=== PATIENT | male | born 1985 | race Two or more races ===

== ENCOUNTER 2023-05-04 17:48 | Inpatient (IN) | payer OTHER ==
[~2023-05-04] VITALS: Ht 172.7 cm; Wt 104.8 kg
--- NOTE | 2023-05-04 18:00 | NUR ---
BLOOD GLUCOSE 465, DR MAN AWARE.
--- NOTE | 2023-05-04 18:55 | NUR ---
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 VITALS ARE WITHIN NORMAL LIMITS, AWAITING MD WEBB.
--- NOTE | 2023-05-04 18:59 | NUR ---
IV ESTABLISHED R AC 18G. LABS DRAWN AND COLLECTD AT BEDSIDE. SALINE LOCK APPLIED.
[2023-05-04] MEDS ORDERED: IV NS 0.9% 1,000 ML BAG IV ONE ×2 (19:00→20:30)
[2023-05-04 19:14] LABS: BASOPHILS # (AUTO) 0.2 K/uL (0.0-0.2); BASOPHILS % (AUTO) 3.3 % (0.0-2.0); EOSINOPHILS % (AUTO) 1.8 % (0.0-6.0); HEMATOCRIT 43 % (39-51); HEMOGLOBIN 14.3 g/dL (13.5-17.5); LYMPHOCYTES # (AUTO) 0.9 K/uL (0.8-4.8); LYMPHOCYTES % (AUTO) 17.6 % (20.0-44.0); MEAN CORPUSCULAR HGB CONC 33 g/dl (31.0-36.0); MEAN CORPUSCULAR VOLUME 93 fL (80-96); MONOCYTES # (AUTO) 0.8 K/uL (0.1-1.30); MONOCYTES % (AUTO) 14.2 % (2.0-12.0); NEUTROPHILS # (AUTO) 3.4 K/uL (1.8-8.9); NEUTROPHILS % (AUTO) 63.1 % (43.0-81.0); PLATELET COUNT (AUTO) 201 K/uL (150-450); RED BLOOD CELL COUNT(AUTO) 4.59 MIL/uL (4.5-6.0); WHITE BLOOD COUNT (AUTO) 5.3 K/uL (4.3-11.0)
--- NOTE | 2023-05-04 19:21 | NUR ---
EMT AT PT'S BEDSIDE FOR EKG
--- NOTE | 2023-05-04 19:21 | NUR ---
RT AT PT'S BEDSIDE
--- NOTE | 2023-05-04 19:24 | NUR ---
VBG DONE AND GIVEN TO RT CRISTINE.
[2023-05-04 19:28] LABS: SITE, VBG Other; VBG COHb 0.3 %; VBG MetHb 0.5 %; VBG OXYGEN SATURATION 89.7 %; VENT MODE, VBG room air
--- NOTE | 2023-05-04 19:28 | NUR ---
RECEIVED REPORT FROM LAVINIA MUNOZ. PT CAME WITH HIGH GLUCOSE LEVEL. RECEIVED WITH IV SRINIVASAN G18 ON RIGHT AC., WITH ONGOING IVF OF NS 1L. PATIENT IS AOX4, ABLE TO MAKE NEEDS KNOWN. RESTING IN BED. VITALS CHECKED.
[2023-05-04 19:36] LABS: CALCIUM, SERUM 8.8 mg/dL (8.5-10.1); CARBON DIOXIDE 13 mmol/L (21-32); CHLORIDE 97 mmol/L (98-107); CREATININE 1.1 mg/dL (0.6-1.3); POTASSIUM 3.4 mmol/L (3.5-5.1); SODIUM SERUM 132 mmol/L (136-145); UREA NITROGEN, BLOOD 10 mg/dL (7-18)
--- NOTE | 2023-05-04 19:39 | NUR ---
RECEIVED CRITICAL RESULT FROM JAYME OF LAB. PT GLUCOSE LEVEL IS 496. MADE AWARE
[2023-05-04 19:42] LABS: ALANINE AMINOTRANSFERASE 37 U/L (12-78); ALBUMIN 3.3 g/dL (3.4-5.0); ALKALINE PHOSPHATASE 216 U/L (46-116); ASPARTATE AMINOTRANSFERASE 16 U/L (15-37); BILIRUBIN,DIRECT 0.2 mg/dL (0.0-0.2); BILIRUBIN,TOTAL 0.7 mg/dL (0.2-1.0); LIPASE 240 U/L (73-393); TOTAL PROTEIN, SERUM 6.9 g/dL (6.4-8.2)
[2023-05-04 19:44] LABS: GLUCOSE 496 mg/dL (74-106)
--- NOTE | 2023-05-04 19:46 | NUR ---
XRAY DONE AT BEDSIDE
[2023-05-04] MEDS ORDERED: INSULIN REGULAR, HUMAN 100 UNIT/ML 10 ML VIAL ONE (20:14)
--- NOTE | 2023-05-04 20:25 | NUR ---
INSULIN DRIP ( NS 100ML+R INSULIN 100u) STARTED AT 6U/HR PER DR MAN.
[2023-05-04] MEDS ORDERED: INSULIN REGULAR, HUMAN 100 UNITS in IV NS 0.9% 100 ML IV PRN ×2 (20:30)
--- NOTE | 2023-05-04 20:38 | NUR ---
IV SRINIVASAN G18 INSERTED ON LEFT AC.
--- NOTE | 2023-05-04 21:09 | NUR ---
REPORT GIVEN TO LAVINIA RICHMOND.
--- NOTE | 2023-05-04 21:11 | NUR ---
RN NOTE RECEIVED HAND OFF REPORT FROM ED LAVINIA HUMPHREY
--- NOTE | 2023-05-04 21:29 | NUR ---
URINE SPECIMEN SENT TO LAB
[2023-05-04] MEDS ORDERED: Z GUARD REMEDY 4 OZ OINT TP PRN (21:30)
[2023-05-04] MEDS ORDERED: ACETAMINOPHEN 325 MG TABLET PO PRN (21:30)
[2023-05-04] MEDS ORDERED: ONDANSETRON HCL/PF 4 MG/2 ML VIAL IVP PRN (21:30)
[2023-05-04] MEDS ORDERED: INS (REG) DRIP 100 U/100 ML NS IV PRN ×2 (21:30)
[2023-05-04] MEDS ORDERED: MAG HYDROX/AL HYDROX/SIMETH 30 ML UDC PO PRN (21:30)
[2023-05-04] MEDS ORDERED: MAGNESIUM HYDROXIDE 30 ML UDC PO PRN (21:30)
--- NOTE | 2023-05-04 21:39 | NUR ---
TRANSFERRED TO ICU VIA ACLS PROTOCOL
--- NOTE | 2023-05-04 21:45 | NUR ---
ADMISSION NOTES ADMITTED A 37-YEAR-OLD MALE DX DKA, TRANSPORTED VIA GURNEY BY 2 ED PERSONNEL, NICOLASO X4, ON ROOM AIR. REAL ESTATE OFFICE SUPERVISOR SHOWING SINUS RHYTHM. IV ACCESS ON RAC #18G S/L, INTACT AND PATENT. LAC #18G INFUSING NS AT 150 ML/HR AND INSULIN DRIP AT 6 UNITS/HR PER ER DR. VITAL SIGNS FOLLOWS: TEMP 98F, HR 84, RR 22, BP 108/78. SKIN ASSESSMENT DONE, SCABS ON BILATERAL KNEES NOTED, PHOTOS TAKEN AND PLACED IN THE CHART. BELONGING LIST VERIFIED AND PLACED IN CHART. SAFETY MEASURES IN PLACE: BED LOCKED AND IN LOWEST POSITION, BED ALARM ON, SIDE RAILS UP X2, CALL LIGHT WITHIN REACH.
[2023-05-04] MEDS: IV NS 0.9% 1,000 ML IV PRN (21:50)
[2023-05-04 22:00] VITALS: BP 116/78; O2SAT 99
[2023-05-04 22:07] LABS: BILIRUBIN,URINE 1+ (NEGATIVE); COLOR,URINE YELLOW (YELLOW); LEUKOCYTE ESTERASE ,URINE NEGATIVE (NEGATIVE); NITRITE, URINE NEGATIVE (NEGATIVE); PROTEIN,URINE TRACE mg/dl (NEGATIVE); UGLUCOSE 3+ mg/dL (NEGATIVE); UROBILINOGEN,URINE 0.2 EU/dL (0.2)
[2023-05-04] MEDS: POTASSIUM CL. PREMIX PERIPHER. 50 ML IV SCH ×2 (22:15→23:17)
[2023-05-04 22:19] LABS: BACTERIA,URINE None seen /HPF (None Seen); MUCUS,URINE Few /LPF (None Seen); RBC,URINE 0-2 /HPF (0-2); SQUAMOUS EPITHELIAL CELL,UR None Seen /HPF (None Seen); WBC,URINE NONE SEEN /HPF (0-3)
[2023-05-04 23:00] VITALS: BP 96/60; O2SAT 97
[2023-05-04] MEDS: BLOOD SUGAR DIAGNOSTIC 1 EACH STRIP IN SCH (23:24)
[2023-05-04 23:29] LABS: CALCIUM, SERUM 8.1 mg/dL (8.5-10.1); CREATININE 0.8 mg/dL (0.6-1.3)
[2023-05-04 23:30] LABS: POTASSIUM 2.8 mmol/L (3.5-5.1)
--- NOTE | 2023-05-04 23:30 | NUR ---
RN NOTE RECEIVED LAB REPORT K 2.8, CHARGE NURSE AWARE.
[2023-05-05] VITALS (23 sets, daily range): BP systolic 89–107; BP diastolic 51–76; TEMP 98.1–98.9; O2SAT 98–100
[2023-05-05] MEDS: BLOOD SUGAR DIAGNOSTIC 1 EACH STRIP IN SCH ×23 (00:07→22:12)
[2023-05-05] MEDS: IV NS 0.9% 1,000 ML IV PRN ×4 (04:53→23:11)
[2023-05-05 05:03] LABS: BASOPHILS % (AUTO) 0.7 % (0.0-2.0); EOSINOPHILS % (AUTO) 2.4 % (0.0-6.0); HEMATOCRIT 38 % (39-51); HEMOGLOBIN 12.8 g/dL (13.5-17.5); LYMPHOCYTES # (AUTO) 1.1 K/uL (0.8-4.8); LYMPHOCYTES % (AUTO) 30.4 % (20.0-44.0); MEAN CORPUSCULAR HGB CONC 34 g/dl (31.0-36.0); MEAN CORPUSCULAR VOLUME 94 fL (80-96); MONOCYTES # (AUTO) 0.6 K/uL (0.1-1.30); MONOCYTES % (AUTO) 16.3 % (2.0-12.0); NEUTROPHILS # (AUTO) 1.9 K/uL (1.8-8.9); NEUTROPHILS % (AUTO) 50.2 % (43.0-81.0); PLATELET COUNT (AUTO) 138 K/uL (150-450); RED BLOOD CELL COUNT(AUTO) 4.03 MIL/uL (4.5-6.0); WHITE BLOOD COUNT (AUTO) 3.8 K/uL (4.3-11.0)
[2023-05-05 05:32] LABS: EOSINOPHILS % (MANUAL) 4 % (0-4); LYMPHOCYTES % (MANUAL) 30 % (16-48); MONOCYTES % (MANUAL) 12 % (0-11.0); NEUTROPHILS % (MANUAL) 54 (42-76)
[2023-05-05 05:36] LABS: CALCIUM, SERUM 8.1 mg/dL (8.5-10.1); CREATININE 0.8 mg/dL (0.6-1.3); MAGNESIUM 2.1 mg/dL (1.8-2.4); PHOSPHORUS 2.5 mg/dL (2.5-4.9)
[2023-05-05 06:11] LABS: POTASSIUM 2.5 mmol/L (3.5-5.1)
[2023-05-05 06:26] LABS: THYROID STIMULATING HORMONE 1.798 uIU/mL (0.358-3.74)
[2023-05-05] MEDS ORDERED: POTASSIUM CHLORIDE 20 MEQ TAB.PRT.SR PO ONE ×2 (06:35→12:00)
--- NOTE | 2023-05-05 06:42 | NUR ---
RN NOTE CRITICAL LAB VALUE POTASSIUM 2.5, NOTIFIED CELIA MERAZ, RECEIVED MED ORDERS.
--- NOTE | 2023-05-05 07:39 | NUR ---
RN CLOSING NOTES PATIENT IN BED, AAO X4, ON ROOM AIR, NO SOB/DISTRESS NOTED. PHARMACIST PER DIEM SHOWING SINUS RHYTHM. IV ACCESS ON RAC #18G S/L, INTACT AND PATENT. LAC #18G INFUSING NS AT 150 ML/HR AND INSULIN DRIP AT 0.5 UNITS/HR. ALL DUE MEDS WERE GIVEN AND NEEDS ATTENDED. SAFETY MEASURES IN PLACE: BED LOCKED AND IN LOWEST POSITION, BED ALARM ON, SIDE RAILS UP X2, CALL LIGHT WITHIN REACH. ENDORSED TO AM NURSE FOR TING.
[2023-05-05] MEDS: POTASSIUM CL. PREMIX PERIPHER. 50 ML IV SCH ×10 (07:51→22:38)
--- NOTE | 2023-05-05 08:02 | NUR ---
RN OPENING NOTES PATIENT RECEIVED IN BED. AAO X4, ON ROOM AIR, NO SOB/DISTRESS NOTED. SOLAR SALES ASSOCIATE SHOWING SINUS RHYTHM. IV ACCESS ON RAC #18G S/L, INTACT AND PATENT. LAC #18G INFUSING NS AT 150 ML/HR AND INSULIN DRIP AT 0.5 UNITS/HR. SAFETY MEASURES IN PLACE: BED LOCKED AND IN LOWEST POSITION, BED ALARM ON, SIDE RAILS UP X2, CALL LIGHT WITHIN REACH.
[2023-05-05] MEDS: PANTOPRAZOLE 40 MG VIAL IV SCH (09:12)
[2023-05-05 09:37] LABS: CALCIUM, SERUM 8.2 mg/dL (8.5-10.1); CREATININE 0.9 mg/dL (0.6-1.3); POTASSIUM 3.4 mmol/L (3.5-5.1)
--- NOTE | 2023-05-05 11:41 | NUR ---
PHARMACY CANCELLED 1/4 BAGS FOR INITIAL ORDER OF IV POTASSIUM CHLORIDE 10 MEQ THEY THOUGHT THE ORDER WAS FOR 3 BAGS ONLY. SPOKE TO PHARMACY AND REQUESTED LAST BAG. PHARMACY PLACED ANOTHER ORDER FOR 1 BAG SCHEDULED FOR ADMINISTRATION AT NOON.
[2023-05-05] MEDS ORDERED: POTASSIUM CL. PREMIX PERIPHER. 50 ML IV SCH (12:00)
[2023-05-05 13:33] LABS: CALCIUM, SERUM 8.2 mg/dL (8.5-10.1); CREATININE 0.9 mg/dL (0.6-1.3); POTASSIUM 3.2 mmol/L (3.5-5.1)
[2023-05-05] MEDS ORDERED: METF-440 PO (15:22)
[2023-05-05 16:05] LABS: CALCIUM, SERUM 8.4 mg/dL (8.5-10.1); CREATININE 0.9 mg/dL (0.6-1.3); POTASSIUM 2.9 mmol/L (3.5-5.1)
[2023-05-05] MEDS ORDERED: POTASSIUM CHLORIDE 10 MEQ/50 ML PREMIXED IVPB FOR PERIPHERAL LINE IV PRN (19:00)
--- NOTE | 2023-05-05 19:05 | NUR ---
RN OPENING NOTES RECEIVED PATIENT ON BED, AWAKE, ALERT AND VERBALLY RESPONSIVE ON ROOM AIR, SATING AT 94%. RESPIRATORY EVEN AND UNLABORED, NO SOB NOTED. AFEBRILE. NO S/S OF DISTRESS NOTED. NOTED WITH RAC # 18 AND LAC # 18 PERIPHERAL LINE, PATENT INTACT, FLUSHED WITH NS, NO S/S OF INFILTRATION NOTED. CURRENT RUNNING WITH INSULIN DRIP @ 4 UNITS/HR AND NS @ 150 ML/HR. ALL SAFETY PRECAUTION PROVIDED. BED IN LOWEST POSITION LOCKED. CALL LIGHT WITH IN REACH.
[2023-05-05 20:28] LABS: CALCIUM, SERUM 8.3 mg/dL (8.5-10.1); CREATININE 0.9 mg/dL (0.6-1.3); POTASSIUM 3.3 mmol/L (3.5-5.1)
[2023-05-05] MEDS ORDERED: DEXTROSE 50%-WATER 50 ML DISP.SYRIN IV PRN (22:00)
[2023-05-05] MEDS ORDERED: INSULIN GLARGINE, 100 UNIT/ML CARTRIDGE SQ SCH (22:00)
[2023-05-05] MEDS ORDERED: INSULIN GLARGINE, 100 UNIT/ML CARTRIDGE SQ ONE (22:07)
[2023-05-05] MEDS: INSULIN REGULAR, HUMAN 100 UNIT/ML 3 ML VIAL SQ PRN (22:29)
[2023-05-06 00:30] VITALS: BP 112/69; TEMP 97.8; O2SAT 99
--- NOTE | 2023-05-06 00:30 | NUR ---
RN NOTES REPORT GIVEN TO LAVINIA JUAREZ.
--- NOTE | 2023-05-06 00:40 | NUR ---
RN NOTES TRANSFERRED PATIENT TO ROOM 314-2 IN STABLE CONDITION.
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
[2023-05-06] MEDS: IV NS 0.9% 1,000 ML IV PRN (05:44)
[2023-05-06 05:51] LABS: BASOPHILS % (AUTO) 0.5 % (0.0-2.0); EOSINOPHILS % (AUTO) 1.2 % (0.0-6.0); HEMATOCRIT 41 % (39-51); HEMOGLOBIN 14.1 g/dL (13.5-17.5); LYMPHOCYTES # (AUTO) 0.8 K/uL (0.8-4.8); LYMPHOCYTES % (AUTO) 21.3 % (20.0-44.0); MEAN CORPUSCULAR HGB CONC 34 g/dl (31.0-36.0); MEAN CORPUSCULAR VOLUME 93 fL (80-96); MONOCYTES # (AUTO) 0.4 K/uL (0.1-1.30); MONOCYTES % (AUTO) 11.7 % (2.0-12.0); NEUTROPHILS # (AUTO) 2.4 K/uL (1.8-8.9); NEUTROPHILS % (AUTO) 65.3 % (43.0-81.0); PLATELET COUNT (AUTO) 139 K/uL (150-450); RED BLOOD CELL COUNT(AUTO) 4.42 MIL/uL (4.5-6.0); WHITE BLOOD COUNT (AUTO) 3.7 K/uL (4.3-11.0)
--- NOTE | 2023-05-06 06:08 | NUR ---
INFORMATION SENT:FACESHEET,24 HRS REPORT,DC PLANNING,PROGRESS NOTES-05/05 INSURANCE NAME:KATHYNelly/AUTH# [id number] FAX NO:[phone] / [phone] [facility] NAME:[facility] FAX NO:[phone] NO OF PAGES:19 FAX SENT BY:SULAIMAN
[2023-05-06 06:21] LABS: CALCIUM, SERUM 8.5 mg/dL (8.5-10.1); CREATININE 0.7 mg/dL (0.6-1.3); POTASSIUM 3.1 mmol/L (3.5-5.1)
--- NOTE | 2023-05-06 06:30 | NUR ---
MS RN CLOSING NOTE PATIENT IN BED, ASLEEP BUT EASY TO AROUSE AND RESPONSIVE. ABLE TO MAKE NEEDS KNOWN. AFEBRILE AND NOT IN ANY FORM OF ACUTE DISTRESS. BREATHING EVEN AND NON LABORED. NO C/O PAIN OR DISCOMFORT THROUGHOUT THE SHIFT. WITH IV ACCESS ON RIGHT AND LEFT AC 18G RUNNING WITH NS AT 75ML/HR. MONITORED FOR ANY S/SX. OF HYPO/HYPERGLYCEMIA. MEDICATED ORDERED. SAFETY MEASURES IN PLACE. KEPT BED IN LOCKED AND IN LOW POSITION. SIDE RAILS UP X2. ADVISED TO USE THE CALL LIGHT WHEN IN NEED OF ASSISTANCE. ALL NURSING NEEDS ATTENDED. ENDORSED TO INCOMING SHIFT FOR CONTINUITY OF CARE.
[2023-05-06] MEDS: BLOOD SUGAR DIAGNOSTIC 1 EACH STRIP IN SCH (06:35)
[2023-05-06] MEDS: INSULIN REGULAR, HUMAN 100 UNIT/ML 3 ML VIAL SQ PRN (06:37)
[2023-05-06 07:30] VITALS: BP 93/62; TEMP 98.1; O2SAT 97
[2023-05-06] MEDS ORDERED: POTASSIUM CHLORIDE 20 MEQ TAB.PRT.SR PO ONE ×2 (07:30→11:00)
--- NOTE | 2023-05-06 07:40 | NUR ---
RN OPENING NOTE RECEIVED PATIENT IN BED, ASLEEP BUT EASY TO AROUSE AND RESPONSIVE, ABLE TO MAKE NEEDS KNOWN. PT IS ON ROOM AIR BREATHING EVEN AND UNLABORED, NO SOB OR DISTRESS NOTED. NO COMPLAINS OF PAIN OR DISCOMFORT AT THIS TIME. WITH IV ACCESS ON RIGHT AC #18G AND LEFT AC #18G RUNNING WITH NS AT 75ML/HR. SAFETY MEASURES IN PLACE: BED IN LOWEST LOCKED POSITION, SIDE RAILS UP X2, CALL LIGHT WITHIN REACH. WILL CONTINUE TO MONITOR ACCORDINGLY.
[2023-05-06] MEDS: PANTOPRAZOLE 40 MG VIAL IV SCH (08:20)
--- NOTE | 2023-05-06 16:11 | NUR ---
STEP DOWN SPECIALIST NOTE RECEIVED ORDER FOR DISCHARGE. PATIENT IS A/O X4, ABLE TO MAKE NEEDS KNOWN, STABLE ON ROOM AIR, NO SOB OR DISTRESS NOTED. DISCHARGE INSTRUCTION GIVEN, PT VERBALIZED UNDERSTANDING. ALL BELONGINGS ACCOUNTED FOR, BELONGING SHEET SIGNED. PT DENIES ANY PAIN OR DISCOMFORT AT THIS TIME. IV ACCESS REMOVED, CATHETER TIP INTACT, PRESSURE DRESSING APPLIED. EXIT CARE FOLDER GIVEN TO PT. PATIENT LEFT IN STABLE CONDITION WITH FAMILY VIA PRIVATE CAR.
[2023-05-06] MEDS ORDERED: METFORMIN 500 MG TABLET PO SCH (17:00)
[2023-05-07] MEDS ORDERED: PANTOPRAZOLE 40 MG TABLET.DR PO SCH (09:00)
== END 2023-05-06 12:15 | disposition home or self-care (01) | DRG 420 ==
LOC: ER 17:53 → ICU 20:41 → MED 05-06 01:05
PROVIDERS: ADMIT Nurse Practitioner Acute Care; ATTEND Internal Medicine
DX: E11.10 Type 2 diabetes mellitus with ketoacidosis without coma (principal); E87.1 Hypo-osmolality and hyponatremia; E86.1 Hypovolemia; E66.9 Obesity, unspecified; E87.6 Hypokalemia; Z68.35 Body mass index [BMI] 35.0-35.9, adult; Z79.4 Long term (current) use of insulin
CPT/HCPCS: 36415; 71045-TC; 80048-TC; 80061-TC; 80076-TC; 81001; 82010-TC; 82803-TC; 82962-TC; 83690-TC; 83735-TC; 84100-TC; 84443-TC; 84484-TC; 85025-TC; 87081-TC; 87086-TC; A4223; C9113; G0378; J1815; J3480; J7030; J7050

== ENCOUNTER 2023-07-07 09:32 | Inpatient (IN) | payer OTHER ==
[2023-07-07] VITALS (16 sets, daily range): BP systolic 94–117; BP diastolic 56–82; TEMP 97.7; O2SAT 100
[~2023-07-07] VITALS: Ht 172.7 cm; Wt 86.2 kg
[~2023-07-07 09:32] MED LIST: METF-440 PO
[2023-07-07] MEDS ORDERED: IV NS 0.9% 1,000 ML BAG IV ONE ×2 (10:00→12:30)
[2023-07-07 10:21] LABS: BASOPHILS % (AUTO) 0.4 % (0.0-2.0); EOSINOPHILS % (AUTO) 0.1 % (0.0-6.0); HEMATOCRIT 50 % (39-51); HEMOGLOBIN 16.9 g/dL (13.5-17.5); LYMPHOCYTES # (AUTO) 0.7 K/uL (0.8-4.8); LYMPHOCYTES % (AUTO) 9.3 % (20.0-44.0); MEAN CORPUSCULAR HEMOGLOBIN 34 PG (26.0-33.0); MEAN CORPUSCULAR HGB CONC 34 g/dl (31.0-36.0); MEAN CORPUSCULAR VOLUME 100 fL (80-96); MONOCYTES # (AUTO) 0.8 K/uL (0.1-1.30); MONOCYTES % (AUTO) 11.2 % (2.0-12.0); NEUTROPHILS # (AUTO) 5.6 K/uL (1.8-8.9); PLATELET COUNT (AUTO) 233 K/uL (150-450); RED BLOOD CELL COUNT(AUTO) 5.06 MIL/uL (4.5-6.0); RED CELL DISTRIBUTION WIDTH 16.9 % (11.5-15.0)
[2023-07-07 10:30] LABS: INR 0.97 (0.91-1.10); PARTIAL THROMBOPLASTIN TIME 28.4 SEC (24.3-34.3); PROTHROMBIN TIME 10.3 SECS (9.2-11.1)
[2023-07-07 10:46] LABS: ALANINE AMINOTRANSFERASE 27 U/L (12-78); ALBUMIN 3.5 g/dL (3.4-5.0); ALKALINE PHOSPHATASE 255 U/L (46-116); ASPARTATE AMINOTRANSFERASE 11 U/L (15-37); BILIRUBIN,DIRECT 0.3 mg/dL (0.0-0.2); BILIRUBIN,TOTAL 0.9 mg/dL (0.2-1.0); CALCIUM, SERUM 10.5 mg/dL (8.5-10.1); CARBON DIOXIDE 12 mmol/L (21-32); CHLORIDE 93 mmol/L (98-107); CREATININE 1.4 mg/dL (0.6-1.3); LIPASE 311 U/L (73-393); POTASSIUM 2.9 mmol/L (3.5-5.1); SODIUM SERUM 131 mmol/L (136-145); TOTAL PROTEIN, SERUM 7.4 g/dL (6.4-8.2); UREA NITROGEN, BLOOD 16 mg/dL (7-18)
[2023-07-07 10:48] LABS: GLUCOSE 567 mg/dL (74-106)
[2023-07-07 10:48] LABS: APPEARANCE,URINE SLIGHTLY CLOUDY (CLEAR); BILIRUBIN,URINE NEGATIVE (NEGATIVE); BLOOD, URINE 1+ Ery/uL (NEGATIVE); COLOR,URINE YELLOW (YELLOW); KETONES,URINE 3+ mg/dL (NEGATIVE); LEUKOCYTE ESTERASE ,URINE NEGATIVE (NEGATIVE); NITRITE, URINE NEGATIVE (NEGATIVE); PROTEIN,URINE NEGATIVE (NEGATIVE); UGLUCOSE 3+ mg/dL (NEGATIVE); UROBILINOGEN,URINE 0.2 EU/dL (0.2)
[2023-07-07 11:11] LABS: ADD URINE CULTURE NO; BACTERIA,URINE Rare /HPF (None Seen); SQUAMOUS EPITHELIAL CELL,UR Rare /HPF (None Seen); WBC,URINE 0-2 /HPF (0-3)
[2023-07-07] MEDS ORDERED: METF-442 PO (12:07)
[2023-07-07 12:56] LABS: CALCIUM, SERUM 9.3 mg/dL (8.5-10.1); CREATININE 1.1 mg/dL (0.6-1.3); MAGNESIUM 2.2 mg/dL (1.8-2.4)
[2023-07-07 12:59] LABS: POTASSIUM 2.6 mmol/L (3.5-5.1)
[2023-07-07] MEDS: IV PREMIX NS + 40 MEQ KCL 1 L IV PRN (13:00)
[2023-07-07] MEDS ORDERED: POTASSIUM CHLORIDE 20 MEQ TAB.PRT.SR PO ONE ×2 (13:30→13:57)
[2023-07-07] MEDS ORDERED: IV PREMIX NS +20MEQ KCL 1 L IV PRN (14:00)
[2023-07-07 14:41] LABS: CALCIUM, SERUM 8.7 mg/dL (8.5-10.1); CREATININE 1.2 mg/dL (0.6-1.3); MAGNESIUM 2.1 mg/dL (1.8-2.4); PHOSPHORUS 3.5 mg/dL (2.5-4.9)
[2023-07-07 14:49] LABS: POTASSIUM 2.8 mmol/L (3.5-5.1)
[2023-07-07] MEDS ORDERED: IV NS 0.9% 1,000 ML IV PRN (15:00)
[2023-07-07] MEDS ORDERED: INSULIN REGULAR, HUMAN 100 UNIT in IV NS 0.9% 99 ML IV PRN ×4 (15:00→17:00)
[2023-07-07] MEDS ORDERED: ONDANSETRON HCL/PF 4 MG/2 ML VIAL IVP PRN (15:00)
[2023-07-07 16:49] LABS: POTASSIUM 3.2 mmol/L (3.5-5.1); SODIUM SERUM 139 mmol/L (136-145)
[2023-07-07 16:50] LABS: CALCIUM, SERUM 8.4 mg/dL (8.5-10.1); CHLORIDE 106 mmol/L (98-107); GLUCOSE 342 mg/dL (74-106); PHOSPHORUS 3.4 mg/dL (2.5-4.9); UREA NITROGEN, BLOOD 12 mg/dL (7-18)
[2023-07-07 16:51] LABS: MAGNESIUM 2.1 mg/dL (1.8-2.4)
[2023-07-07] MEDS: BLOOD SUGAR DIAGNOSTIC 1 EACH STRIP IN SCH ×8 (17:36→23:51)
[2023-07-07] MEDS: Potassium Chloride 40 MEQ in IV NS 0.9% 1,000 ML IV SCH (17:58)
[2023-07-07 19:02] LABS: CARBON DIOXIDE 12 mmol/L (21-32)
[2023-07-07 20:53] LABS: CALCIUM, SERUM 8.6 mg/dL (8.5-10.1)
[2023-07-08] VITALS (13 sets, daily range): BP systolic 90–109; BP diastolic 50–77; TEMP 97.5–98.5; O2SAT 97–100
[2023-07-08] LABS: CALCIUM, SERUM 8.7 mg/dL (8.5-10.1)
[2023-07-08 00:10] LABS: POTASSIUM 2.8 mmol/L (3.5-5.1)
[2023-07-08] MEDS ORDERED: POTASSIUM CHLORIDE 20 MEQ TAB.PRT.SR PO ONE (00:30)
[2023-07-08] MEDS: POTASSIUM CL. PREMIX PERIPHER. 50 ML IV SCH ×4 (00:37→03:48)
[2023-07-08] MEDS: BLOOD SUGAR DIAGNOSTIC 1 EACH STRIP IN SCH ×5 (01:02→12:15)
[2023-07-08] MEDS: Potassium Chloride 40 MEQ in IV NS 0.9% 1,000 ML IV SCH ×2 (01:59→10:05)
[2023-07-08] MEDS ORDERED: DEXTROSE 50%-WATER 50 ML DISP.SYRIN IV PRN (03:30)
[2023-07-08 04:19] LABS: BASOPHILS % (AUTO) 0.6 % (0.0-2.0); EOSINOPHILS # (AUTO) 0.1 K/uL (0.0-0.7); EOSINOPHILS % (AUTO) 1.1 % (0.0-6.0); HEMATOCRIT 40 % (39-51); HEMOGLOBIN 13.7 g/dL (13.5-17.5); LYMPHOCYTES # (AUTO) 0.9 K/uL (0.8-4.8); LYMPHOCYTES % (AUTO) 16.9 % (20.0-44.0); MEAN CORPUSCULAR HEMOGLOBIN 33 PG (26.0-33.0); MEAN CORPUSCULAR HGB CONC 34 g/dl (31.0-36.0); MEAN CORPUSCULAR VOLUME 98 fL (80-96); MONOCYTES # (AUTO) 0.7 K/uL (0.1-1.30); MONOCYTES % (AUTO) 13.4 % (2.0-12.0); NEUTROPHILS # (AUTO) 3.5 K/uL (1.8-8.9); PLATELET COUNT (AUTO) 192 K/uL (150-450); RED BLOOD CELL COUNT(AUTO) 4.13 MIL/uL (4.5-6.0); RED CELL DISTRIBUTION WIDTH 17.1 % (11.5-15.0); WHITE BLOOD COUNT (AUTO) 5.1 K/uL (4.3-11.0)
[2023-07-08 04:29] LABS: CREATININE 0.8 mg/dL (0.6-1.3); PHOSPHORUS 2.2 mg/dL (2.5-4.9); POTASSIUM 3.9 mmol/L (3.5-5.1)
[2023-07-08] MEDS: INSULIN REGULAR, HUMAN 100 UNIT/ML 3 ML VIAL SQ PRN ×2 (07:59→12:17)
[2023-07-08] MEDS ORDERED: PANTOPRAZOLE 40 MG VIAL IV SCH (09:00)
[2023-07-08] MEDS ORDERED: K PHOS NEUTRAL 250 MG TABLET PO ONE (16:00)
== END 2023-07-08 15:45 | disposition home or self-care (01) | DRG 420 ==
LOC: ER 09:32 → TELE1 15:05 → ICU 16:04 → MED 07-08 11:45
DX: E11.10 Type 2 diabetes mellitus with ketoacidosis without coma (principal); N17.9 Acute kidney failure, unspecified; Z79.84 Long term (current) use of oral hypoglycemic drugs; Z87.891 Personal history of nicotine dependence; E87.6 Hypokalemia
CPT/HCPCS: 36415; 71045-TC; 80048-TC; 80076-TC; 81001; 82962-TC; 83690-TC; 83735-TC; 84100-TC; 84484-TC; 85025-TC; 85730-TC; 87086-TC; A4223; C9113; G0378; J1815; J3480; J3490; J7030

== ENCOUNTER 2023-08-01 21:03 | Inpatient (IN) | payer OTHER ==
[~2023-08-01] VITALS: Ht 175.3 cm; Wt 87.1 kg
[~2023-08-01 21:03] MED LIST changes: -METF-440 PO; +METF-442 PO
[2023-08-01] MEDS ORDERED: IV NS 0.9% 1,000 ML IV PRN ×4 (21:30→23:00)
[2023-08-01 21:42] LABS: BASOPHILS # (AUTO) 0.1 K/uL (0.0-0.2); BASOPHILS % (AUTO) 0.6 % (0.0-2.0); EOSINOPHILS % (AUTO) 0.1 % (0.0-6.0); HEMATOCRIT 49 % (39-51); HEMOGLOBIN 16.3 g/dL (13.5-17.5); LYMPHOCYTES # (AUTO) 0.6 K/uL (0.8-4.8); LYMPHOCYTES % (AUTO) 5.2 % (20.0-44.0); MEAN CORPUSCULAR HEMOGLOBIN 34 PG (26.0-33.0); MEAN CORPUSCULAR HGB CONC 33 g/dl (31.0-36.0); MEAN CORPUSCULAR VOLUME 101 fL (80-96); MONOCYTES # (AUTO) 1.6 K/uL (0.1-1.30); MONOCYTES % (AUTO) 14.4 % (2.0-12.0); NEUTROPHILS # (AUTO) 9.2 K/uL (1.8-8.9); NEUTROPHILS % (AUTO) 79.7 % (43.0-81.0); PLATELET COUNT (AUTO) 334 K/uL (150-450); RED BLOOD CELL COUNT(AUTO) 4.85 MIL/uL (4.5-6.0); RED CELL DISTRIBUTION WIDTH 15.6 % (11.5-15.0); WHITE BLOOD COUNT (AUTO) 11.5 K/uL (4.3-11.0)
[2023-08-01 22:00] LABS: CALCIUM, SERUM 10.3 mg/dL (8.5-10.1); CREATININE 1.2 mg/dL (0.6-1.3)
[2023-08-01 22:22] LABS: POTASSIUM 2.5 mmol/L (3.5-5.1)
[2023-08-01 22:44] LABS: APPEARANCE,URINE CLEAR (CLEAR); BILIRUBIN,URINE 1+ (NEGATIVE); BLOOD, URINE 1+ Ery/uL (NEGATIVE); COLOR,URINE YELLOW (YELLOW); KETONES,URINE 3+ mg/dL (NEGATIVE); LEUKOCYTE ESTERASE ,URINE NEGATIVE (NEGATIVE); NITRITE, URINE NEGATIVE (NEGATIVE); PROTEIN,URINE 1+ mg/dl (NEGATIVE); UGLUCOSE 2+ mg/dL (NEGATIVE); UROBILINOGEN,URINE 0.2 EU/dL (0.2)
[2023-08-01] MEDS ORDERED: IV PREMIX NS +20MEQ KCL 1 L IV ONE (22:51)
[2023-08-01] MEDS ORDERED: ZOLPIDEM TARTRATE 5 MG TABLET PO PRN (23:00)
[2023-08-01] MEDS ORDERED: IV PREMIX NS + 40 MEQ KCL 1 L IV PRN (23:00)
[2023-08-01] MEDS ORDERED: ACETAMINOPHEN 325 MG TABLET PO PRN (23:00)
[2023-08-01] MEDS ORDERED: MAG HYDROX/AL HYDROX/SIMETH 30 ML UDC PO PRN (23:00)
[2023-08-01] MEDS ORDERED: Z GUARD REMEDY 4 OZ OINT TP PRN (23:00)
[2023-08-01] MEDS ORDERED: ONDANSETRON HCL/PF 4 MG/2 ML VIAL IVP PRN (23:00)
[2023-08-01] MEDS: BLOOD SUGAR DIAGNOSTIC 1 EACH STRIP IN SCH (23:00)
[2023-08-01] MEDS ORDERED: Potassium Chloride 20 MEQ in IV NS 0.9% 1,000 ML IV PRN (23:00)
[2023-08-01] MEDS ORDERED: MAGNESIUM HYDROXIDE 30 ML UDC PO PRN (23:00)
[2023-08-01] MEDS ORDERED: DEXTROSE 50%-WATER 50 ML DISP.SYRIN IV PRN (23:00)
[2023-08-01] MEDS ORDERED: INSULIN REGULAR, HUMAN 100 UNIT in IV NS 0.9% 99 ML IV PRN ×2 (23:00)
[2023-08-01 23:02] LABS: ADD URINE CULTURE NO; BACTERIA,URINE None seen /HPF (None Seen); HYALINE CASTS, URINE Few /LPF (None Seen); MUCUS,URINE Few /LPF (None Seen); SQUAMOUS EPITHELIAL CELL,UR 0-2 /HPF (None Seen); WBC,URINE NONE SEEN /HPF (0-3)
[2023-08-02] VITALS (12 sets, daily range): BP systolic 84–110; BP diastolic 57–73; TEMP 98.6–98.8; O2SAT 92–100
[2023-08-02] MEDS: BLOOD SUGAR DIAGNOSTIC 1 EACH STRIP IN SCH ×19 (00:12→17:52)
[2023-08-02] MEDS ORDERED: INSULIN REGULAR, HUMAN 100 UNIT/ML 3 ML VIAL ONE (00:20)
[2023-08-02 00:49] LABS: CALCIUM, SERUM 8.6 mg/dL (8.5-10.1); POTASSIUM 3.5 mmol/L (3.5-5.1)
[2023-08-02] MEDS ORDERED: SODIUM BICARBONATE SYR 50 MEQ/50 ML DISP.SYRIN IV ONE (03:00)
[2023-08-02 06:09] LABS: BASOPHILS % (AUTO) 0.1 % (0.0-2.0); HEMATOCRIT 43 % (39-51); HEMOGLOBIN 14.7 g/dL (13.5-17.5); LYMPHOCYTES # (AUTO) 0.5 K/uL (0.8-4.8); MEAN CORPUSCULAR HEMOGLOBIN 34 PG (26.0-33.0); MEAN CORPUSCULAR HGB CONC 34 g/dl (31.0-36.0); MEAN CORPUSCULAR VOLUME 100 fL (80-96); MONOCYTES # (AUTO) 2.4 K/uL (0.1-1.30); MONOCYTES % (AUTO) 19.3 % (2.0-12.0); NEUTROPHILS # (AUTO) 9.4 K/uL (1.8-8.9); NEUTROPHILS % (AUTO) 76.6 % (43.0-81.0); PLATELET COUNT (AUTO) 289 K/uL (150-450); RED BLOOD CELL COUNT(AUTO) 4.31 MIL/uL (4.5-6.0); RED CELL DISTRIBUTION WIDTH 15.5 % (11.5-15.0); WHITE BLOOD COUNT (AUTO) 12.3 K/uL (4.3-11.0)
[2023-08-02 06:23] LABS: CREATININE 0.9 mg/dL (0.6-1.3); MAGNESIUM 2.4 mg/dL (1.8-2.4)
[2023-08-02] MEDS: Potassium Chloride 20 MEQ in IV NS 0.9% 1,000 ML IV SCH ×2 (07:21→10:19)
[2023-08-02] MEDS ORDERED: IV PREMIX D5 1/2NS + KCL 1,000 ML IV ONE ×2 (07:30→13:30)
[2023-08-02] MEDS ORDERED: POTASSIUM CHLORIDE 20 MEQ TAB.PRT.SR PO ONE (08:30)
[2023-08-02] MEDS ORDERED: PANTOPRAZOLE 40 MG VIAL IV SCH (09:00)
[2023-08-02 09:47] LABS: ABG BASE EXCESS -12.7 mmol/L; ABG PCO2 20.1 mmHg (35.0-45.0); ABG PH 7.336 (7.350-7.450); ABG PO2 105.8 mmHg (75.0-100.0); ABG TOTAL HEMOGLOBIN 15.4 G/dL (13.5-18.0); AaDO2 19.9 mmHg; COHb 0.6 % (0.5-1.5); MetHb 0.4 % (0.0-1.5); SITE, ABG Right Brachial; VENT MODE, BG ROOM AIR 21%
[2023-08-02 09:47] LABS: ABG BASE EXCESS -19.8 mmol/L; ABG OXYGEN SATURATION 97.9 % (92.0-98.5); ABG PCO2 14.3 mmHg (35.0-45.0); ABG PH 7.201 (7.350-7.450); ABG PO2 108.1 mmHg (75.0-100.0); ABG TOTAL HEMOGLOBIN 15.6 G/dL (13.5-18.0); COHb 0.1 % (0.5-1.5); MetHb 0.6 % (0.0-1.5); O2Hb 97.2 % (94.0-97.0); SITE, ABG Left Brachial; VENT MODE, BG room air
[2023-08-02] MEDS: THERAHONEY GEL 1.5 OZ TUBE TP SCH (10:00)
[2023-08-02 11:51] LABS: CALCIUM, SERUM 8.5 mg/dL (8.5-10.1)
[2023-08-02] MEDS: Potassium Chloride 10 MEQ, LIDOCAINE HCL/PF 1% 1 ML in IV NS 0.9% 50 ML IV SCH ×9 (12:35→23:17)
[2023-08-02 12:36] LABS: POTASSIUM 1.8 mmol/L (3.5-5.1)
[2023-08-02] MEDS ORDERED: IV PREMIX D5 1/2NS + KCL 1,000 ML IV SCH (14:30)
[2023-08-02 17:44] LABS: CALCIUM, SERUM 8.5 mg/dL (8.5-10.1); CREATININE 0.9 mg/dL (0.6-1.3)
[2023-08-02 17:51] LABS: POTASSIUM 2.5 mmol/L (3.5-5.1)
[2023-08-02 19:04] LABS: ANISOCYTOSIS 1+; BAND % (MANUAL) 1 % (0.0-5.0); EOSINOPHILS % (MANUAL) 1 % (0-4); LYMPHOCYTES % (MANUAL) 11 % (16-48); MONOCYTES % (MANUAL) 8 % (0-11.0); NEUTROPHILS % (MANUAL) 79 (42-76); PLATELET ESTIMATE ADEQUATE
[2023-08-02] MEDS ORDERED: INSULIN GLARGINE, 100 UNIT/ML CARTRIDGE SQ ONE (19:30)
[2023-08-02] MEDS ORDERED: *INSULIN REGULAR(HUMULIN R)HUM 100 UNIT/ML VIAL SQ PRN (19:30)
[2023-08-02] MEDS ORDERED: DEXTROSE 50%-WATER 50 ML DISP.SYRIN IV PRN (19:30)
[2023-08-02] MEDS: BLOOD SUGAR DIAGNOSTIC 1 EACH STRIP VI SCH ×2 (20:00→22:23)
[2023-08-02] MEDS: INSULIN REGULAR, HUMAN 100 UNIT/ML 3 ML VIAL SQ PRN ×2 (20:00→22:24)
[2023-08-02] MEDS ORDERED: IV NS 0.9% 250 ML IV PRN (20:17)
[2023-08-02 21:51] LABS: CALCIUM, SERUM 8.8 mg/dL (8.5-10.1); CREATININE 0.8 mg/dL (0.6-1.3)
[2023-08-02 21:58] LABS: POTASSIUM 2.8 mmol/L (3.5-5.1)
[2023-08-03] VITALS (28 sets, daily range): BP systolic 89–101; BP diastolic 52–71; TEMP 98.4–99.1; O2SAT 95–100
[2023-08-03 00:51] LABS: CALCIUM, SERUM 8.5 mg/dL (8.5-10.1); CREATININE 0.8 mg/dL (0.6-1.3)
[2023-08-03 01:11] LABS: POTASSIUM 2.6 mmol/L (3.5-5.1)
[2023-08-03] MEDS ORDERED: POTASSIUM CHLORIDE 20 MEQ TAB.PRT.SR PO ONE ×2 (01:30→03:30)
[2023-08-03 04:59] LABS: BASOPHILS % (AUTO) 0.2 % (0.0-2.0); EOSINOPHILS % (AUTO) 0.1 % (0.0-6.0); HEMATOCRIT 38 % (39-51); HEMOGLOBIN 12.9 g/dL (13.5-17.5); LYMPHOCYTES # (AUTO) 0.8 K/uL (0.8-4.8); LYMPHOCYTES % (AUTO) 7.2 % (20.0-44.0); MEAN CORPUSCULAR HEMOGLOBIN 34 PG (26.0-33.0); MEAN CORPUSCULAR HGB CONC 34 g/dl (31.0-36.0); MEAN CORPUSCULAR VOLUME 100 fL (80-96); MONOCYTES % (AUTO) 17.5 % (2.0-12.0); NEUTROPHILS # (AUTO) 8.4 K/uL (1.8-8.9); PLATELET COUNT (AUTO) 224 K/uL (150-450); RED BLOOD CELL COUNT(AUTO) 3.83 MIL/uL (4.5-6.0); RED CELL DISTRIBUTION WIDTH 15.6 % (11.5-15.0); WHITE BLOOD COUNT (AUTO) 11.2 K/uL (4.3-11.0)
[2023-08-03 05:14] LABS: BILIRUBIN,TOTAL 0.5 mg/dL (0.2-1.0); CALCIUM, SERUM 8.7 mg/dL (8.5-10.1); CREATININE 0.7 mg/dL (0.6-1.3); MAGNESIUM 2.1 mg/dL (1.8-2.4); PHOSPHORUS 1.3 mg/dL (2.5-4.9); TOTAL PROTEIN, SERUM 5.7 g/dL (6.4-8.2)
[2023-08-03 05:17] LABS: POTASSIUM 2.4 mmol/L (3.5-5.1)
[2023-08-03 05:27] LABS: EOSINOPHILS % (MANUAL) 1 % (0-4); LYMPHOCYTES % (MANUAL) 7 % (16-48); MONOCYTES % (MANUAL) 17 % (0-11.0); NEUTROPHILS % (MANUAL) 75 (42-76); PLATELET ESTIMATE ADEQUATE
[2023-08-03] MEDS: POTASSIUM CL. PREMIX PERIPHER. 50 ML IV SCH ×10 (06:45→20:17)
[2023-08-03] MEDS: PANTOPRAZOLE 40 MG TABLET.DR PO SCH (08:01)
[2023-08-03] MEDS: INSULIN REGULAR, HUMAN 100 UNIT/ML 3 ML VIAL SQ PRN ×3 (08:02→18:08)
[2023-08-03] MEDS: BLOOD SUGAR DIAGNOSTIC 1 EACH STRIP VI SCH ×4 (08:03→21:11)
[2023-08-03 10:02] LABS: ALBUMIN 1.9 g/dL (3.4-5.0); BILIRUBIN,TOTAL 0.6 mg/dL (0.2-1.0); CALCIUM, SERUM 8.3 mg/dL (8.5-10.1); CREATININE 0.7 mg/dL (0.6-1.3); POTASSIUM 2.9 mmol/L (3.5-5.1); TOTAL PROTEIN, SERUM 5.5 g/dL (6.4-8.2)
[2023-08-03] MEDS: INSULIN GLARGINE, 100 UNIT/ML CARTRIDGE SQ SCH ×2 (10:08→17:07)
[2023-08-03] MEDS: THERAHONEY GEL 1.5 OZ TUBE TP SCH (10:09)
[2023-08-03 10:23] LABS: SITE, VBG Right Radial; VBG AaDO2 26.4 mmHg; VBG BASE EXCESS -5.1 mmol/L (-3-3); VBG COHb 0.6 %; VBG MetHb 0.2 %; VBG O2Hb 96.4 %; VBG OXYGEN SATURATION 97.2 %; VBG PCO2 28.9 mmHg (40-52); VBG PH 7.414 (7.31-7.41); VBG PO2 88.7 mmHg (30-50); VBG TOTAL HEMOGLOBIN 13.8 G/dL (13.5-18.0); VENT MODE, VBG room air
[2023-08-03] MEDS ORDERED: ALBUTEROL FS 2.5 MG/0.5 ML VIAL.NEB NEB PRN (12:00)
[2023-08-03] MEDS ORDERED: IPRATROPIUM/ALBUTEROL INHALER IH SCH (12:00)
[2023-08-03] MEDS ORDERED: NITROGLYCERIN 0.4 MG/TAB BOTTLE SL PRN (14:00)
[2023-08-03] MEDS ORDERED: MORPHINE SULFATE INJ 2 MG/ML DISP.SYRIN IM PRN (14:00)
[2023-08-03] MEDS: ALBUTEROL FS 2.5 MG/3 ML VIAL.NEB NEB SCH ×2 (14:01→19:57)
[2023-08-03] MEDS: IPRATROPIUM NEB FS 0.5 MG/2.5 ML AMPUL.NEB NEB SCH ×2 (14:01→19:57)
[2023-08-03 15:20] LABS: CALCIUM, SERUM 8.3 mg/dL (8.5-10.1); CREATININE 0.7 mg/dL (0.6-1.3); POTASSIUM 3.2 mmol/L (3.5-5.1)
[2023-08-03] MEDS ORDERED: K PHOS NEUTRAL 250 MG TABLET PO ONE (16:00)
[2023-08-03] MEDS: *INSULIN REGULAR(HUMULIN R)HUM 100 UNIT/ML VIAL SQ PRN (21:16)
[2023-08-04] VITALS (24 sets, daily range): BP systolic 87–101; BP diastolic 53–74; TEMP 97.9–98.8; O2SAT 97–100
[2023-08-04] MEDS: IPRATROPIUM NEB FS 0.5 MG/2.5 ML AMPUL.NEB NEB SCH ×4 (01:53→20:08)
[2023-08-04] MEDS: ALBUTEROL FS 2.5 MG/3 ML VIAL.NEB NEB SCH ×4 (01:53→20:08)
[2023-08-04 04:53] LABS: BASOPHILS % (AUTO) 0.1 % (0.0-2.0); EOSINOPHILS % (AUTO) 0.1 % (0.0-6.0); HEMATOCRIT 35 % (39-51); HEMOGLOBIN 12.2 g/dL (13.5-17.5); LYMPHOCYTES # (AUTO) 0.9 K/uL (0.8-4.8); LYMPHOCYTES % (AUTO) 11.4 % (20.0-44.0); MEAN CORPUSCULAR HEMOGLOBIN 34 PG (26.0-33.0); MEAN CORPUSCULAR HGB CONC 35 g/dl (31.0-36.0); MEAN CORPUSCULAR VOLUME 98 fL (80-96); MONOCYTES # (AUTO) 1.2 K/uL (0.1-1.30); MONOCYTES % (AUTO) 15.1 % (2.0-12.0); NEUTROPHILS # (AUTO) 5.8 K/uL (1.8-8.9); NEUTROPHILS % (AUTO) 73.3 % (43.0-81.0); PLATELET COUNT (AUTO) 216 K/uL (150-450); RED BLOOD CELL COUNT(AUTO) 3.57 MIL/uL (4.5-6.0); RED CELL DISTRIBUTION WIDTH 15.4 % (11.5-15.0); WHITE BLOOD COUNT (AUTO) 7.8 K/uL (4.3-11.0)
[2023-08-04 05:00] LABS: CALCIUM, SERUM 8.4 mg/dL (8.5-10.1); CREATININE 0.5 mg/dL (0.6-1.3); MAGNESIUM 2.2 mg/dL (1.8-2.4); PHOSPHORUS 2.8 mg/dL (2.5-4.9)
[2023-08-04 05:16] LABS: POTASSIUM 2.3 mmol/L (3.5-5.1)
[2023-08-04 05:35] LABS: BAND % (MANUAL) 1 % (0.0-5.0); LYMPHOCYTES % (MANUAL) 8 % (16-48); MONOCYTES % (MANUAL) 14 % (0-11.0); NEUTROPHILS % (MANUAL) 77 (42-76)
[2023-08-04 05:36] LABS: PLATELET ESTIMATE ADEQUATE
[2023-08-04] MEDS ORDERED: POTASSIUM CHLORIDE 20 MEQ TAB.PRT.SR PO ONE (06:00)
[2023-08-04] MEDS ORDERED: POTASSIUM CHLORIDE 20 MEQ TAB.PRT.SR PO SCH ×2 (07:30→17:00)
[2023-08-04] MEDS: PANTOPRAZOLE 40 MG TABLET.DR PO SCH (08:05)
[2023-08-04] MEDS: THERAHONEY GEL 1.5 OZ TUBE TP SCH (08:06)
[2023-08-04] MEDS: BLOOD SUGAR DIAGNOSTIC 1 EACH STRIP VI SCH ×4 (08:07→21:52)
[2023-08-04] MEDS: INSULIN REGULAR, HUMAN 100 UNIT/ML 3 ML VIAL SQ PRN ×3 (08:11→17:25)
[2023-08-04] MEDS: INSULIN GLARGINE, 100 UNIT/ML CARTRIDGE SQ SCH ×2 (09:03→17:25)
[2023-08-04] MEDS ORDERED: IV NS 0.9% 1,000 ML BAG IV ONE ×3 (20:30)
[2023-08-04] MEDS: *INSULIN REGULAR(HUMULIN R)HUM 100 UNIT/ML VIAL SQ PRN (21:57)
[2023-08-05] VITALS (9 sets, daily range): BP systolic 90–102; BP diastolic 55–60; TEMP 98.6; O2SAT 88–100
[2023-08-05] MEDS: IPRATROPIUM NEB FS 0.5 MG/2.5 ML AMPUL.NEB NEB SCH ×3 (00:34→13:30)
[2023-08-05] MEDS: ALBUTEROL FS 2.5 MG/3 ML VIAL.NEB NEB SCH ×3 (00:34→13:30)
[2023-08-05 06:18] LABS: BASOPHILS % (AUTO) 0.3 % (0.0-2.0); EOSINOPHILS % (AUTO) 0.3 % (0.0-6.0); HEMATOCRIT 33 % (39-51); HEMOGLOBIN 11.5 g/dL (13.5-17.5); LYMPHOCYTES # (AUTO) 1.1 K/uL (0.8-4.8); LYMPHOCYTES % (AUTO) 15.7 % (20.0-44.0); MEAN CORPUSCULAR HEMOGLOBIN 34 PG (26.0-33.0); MEAN CORPUSCULAR HGB CONC 34 g/dl (31.0-36.0); MEAN CORPUSCULAR VOLUME 100 fL (80-96); MONOCYTES % (AUTO) 14.4 % (2.0-12.0); NEUTROPHILS # (AUTO) 4.7 K/uL (1.8-8.9); NEUTROPHILS % (AUTO) 69.3 % (43.0-81.0); PLATELET COUNT (AUTO) 209 K/uL (150-450); RED BLOOD CELL COUNT(AUTO) 3.34 MIL/uL (4.5-6.0); RED CELL DISTRIBUTION WIDTH 15.1 % (11.5-15.0); WHITE BLOOD COUNT (AUTO) 6.8 K/uL (4.3-11.0)
[2023-08-05] MEDS: BLOOD SUGAR DIAGNOSTIC 1 EACH STRIP VI SCH ×2 (06:36→11:41)
[2023-08-05] MEDS: INSULIN REGULAR, HUMAN 100 UNIT/ML 3 ML VIAL SQ PRN ×2 (06:37→11:47)
[2023-08-05 06:42] LABS: CALCIUM, SERUM 8.5 mg/dL (8.5-10.1); CREATININE 0.5 mg/dL (0.6-1.3); MAGNESIUM 2.1 mg/dL (1.8-2.4); PHOSPHORUS 2.3 mg/dL (2.5-4.9); POTASSIUM 3.4 mmol/L (3.5-5.1)
[2023-08-05] MEDS: PANTOPRAZOLE 40 MG TABLET.DR PO SCH (08:42)
[2023-08-05] MEDS ORDERED: INSULIN GLARGINE, 100 UNIT/ML CARTRIDGE SQ SCH ×2 (09:00→22:00)
[2023-08-05] MEDS: THERAHONEY GEL 1.5 OZ TUBE TP SCH (09:53)
[2023-08-05] MEDS ORDERED: POTASSIUM CHLORIDE 20 MEQ TAB.PRT.SR PO ONE (11:00)
[2023-08-05] MEDS ORDERED: INSU100I30 SQ (12:03)
[2023-08-05] MEDS ORDERED: K PHOS NEUTRAL 250 MG TABLET PO ONE (15:30)
== END 2023-08-05 15:00 | disposition home health service (06) | DRG 420 ==
LOC: ER 21:03 → ICU 22:45 → MED 08-04 12:24
PROVIDERS: ADMIT Nurse Practitioner Acute Care; ATTEND Internal Medicine
PROC: 05HB33Z Insertion of Infusion Device into Right Basilic Vein, Percutaneous Approach (ICD-10-PCS; principal; 2023-08-03)
DX: E11.10 Type 2 diabetes mellitus with ketoacidosis without coma (principal); E87.1 Hypo-osmolality and hyponatremia; E87.6 Hypokalemia; E86.1 Hypovolemia; Z79.84 Long term (current) use of oral hypoglycemic drugs; Z91.148 Patient's other noncompliance with medication regimen for other reason; E83.52 Hypercalcemia; D72.829 Elevated white blood cell count, unspecified; L98.9 Disorder of the skin and subcutaneous tissue, unspecified; Z87.891 Personal history of nicotine dependence
CPT/HCPCS: 36410; 36415; 36600; 71045-TC; 80048-TC; 80053-TC; 81001; 82803-TC; 82962-TC; 83735-TC; 84100-TC; 84484-TC; 85025-TC; 87081-TC; 94799-TC; A4223; G0378; J1815; J2270; J3480; J3490; J7030; J7050

== ENCOUNTER 2025-04-24 06:44 | Emergency (ER) | payer OTHER ==
[~2025-04-24] VITALS: Ht 172.7 cm; Wt 86.2 kg
[~2025-04-24 06:44] MED LIST changes: +INSU100I30 SQ
[2025-04-24 07:49] LABS: PLATELET COUNT (AUTO) 189 K/uL (150-450); RED BLOOD CELL COUNT(AUTO) 4.56 MIL/uL (4.5-6.0); RED CELL DISTRIBUTION WIDTH 13.6 % (11.5-15.0); WHITE BLOOD COUNT (AUTO) 5.3 K/uL (4.3-11.0)
[2025-04-24] MEDS: IV NS 0.9% 1,000 ML BAG IV ONE (07:51)
[2025-04-24 07:57] LABS: FRACTIONATED INSPIRED OXYGEN-V 21.0 %; VBG BASE EXCESS 0.5 mmol/L (-2.0-3.0); VBG HCO3 25.7 mmol/L (22.0-29.0); VBG MetHb 0.2 % (0.5-1.5); VBG OXYGEN SATURATION 90.8 % (60.0-85.0); VBG PCO2 43.4 mmHg (38.0-54.0); VBG PH 7.391 (7.320-7.430); VBG PO2 62.3 mmHg (23.0-48.0); VBG TOTAL HEMOGLOBIN 14.6 G/dL (13.5-17.5)
[2025-04-24 08:09] LABS: CALCIUM, SERUM 8.8 mg/dL (8.5-10.1); CREATININE 1.0 mg/dL (0.6-1.3); SODIUM SERUM 139.0 mmol/L (136-145); UREA NITROGEN, BLOOD 14.0 mg/dL (7-18)
[2025-04-24 08:36] LABS: APPEARANCE,URINE CLEAR (CLEAR); BLOOD, URINE NEGATIVE Ery/uL (NEGATIVE); LEUKOCYTE ESTERASE ,URINE NEGATIVE (NEGATIVE); NITRITE, URINE NEGATIVE (NEGATIVE); UGLUCOSE 3+ mg/dL (NEGATIVE)
[2025-04-24] MEDS ORDERED: [UNRECOGNIZED DRUG - CODE] MC (08:37)
[2025-04-24] MEDS ORDERED: SYRI-614 SUBCUT (08:37)
[2025-04-24 08:42] LABS: ADD URINE CULTURE NO; CLINITEST,URINE NEGATIVE; SQUAMOUS EPITHELIAL CELL,UR 0-2 /HPF (None Seen)
[2025-04-24] MEDS ORDERED: INSULIN REGULAR, HUMAN 100 UNIT/ML 10 ML VIAL ONE (08:55)
[2025-04-24] MEDS: INSULIN REGULAR, HUMAN 100 UNIT/ML 10 ML VIAL SQ ONE (08:58)
[2025-04-24 09:04] VITALS: BP 125/80; TEMP 98.7; O2SAT 98
== END 2025-04-24 09:11 | disposition home or self-care (01) ==
LOC: ER 06:44
DX: E11.65 Type 2 diabetes mellitus with hyperglycemia (principal); Z79.4 Long term (current) use of insulin; Z79.84 Long term (current) use of oral hypoglycemic drugs; Z79.899 Other long term (current) drug therapy
CPT/HCPCS: 99283; 96360; 82803; 85025; 80048; 82010; 81001; 36415; 82962 ×2; 36600; 96372; J1815; J7030